=== PATIENT | female | born 1960 | race Caucasian/White ===

== ENCOUNTER → 2017-03-01 | Outpatient (CLI) | payer OTHER ==
[~2017-03-01] MED LIST: ALBU1AER INH; ATOR10 PO; CARB100C17 PO; FENO50TA PO; FLUO20TA20 PO; JANU50TA9 PO; LANTUSP SQ; MAXA10TA4 PO; OMEP20TA PO; PREM0.622 PO; QUET1TAB67 PO; ROBA750T3 PO; TYLE3 PO; ZOLP10TA3 PO
--- NOTE | 2017-03-07 09:29 | RSPPFT ---
DATE OF PROCEDURE: 03/01/17 COMMENTS: The forced vital capacity shows a small reduction with improvement to normal after bronchodilator. The FEV1 and FEF 25-75 are both normal with improvement after bronchodilator. The FEV1/FVC ratio is normal. The total lung capacity is normal with a normal residual volume and a normal RV/TLC ratio. IMPRESSION: This is compatible with mild, reversible, obstructive lung disease. The diffusion capacity is normal when corrected for alveolar volume.
== END ==
LOC: HRSP 12:51
PROVIDERS: ATTEND Internal Medicine Cardiovascular Disease
DX: R06.02 Shortness of breath (principal)
CPT/HCPCS: 94060; 94726; 94729